=== PATIENT | female | born 1995 | race Two or more races ===

== ENCOUNTER 2022-01-18 13:16 | Emergency (ER) | payer OTHER ==
[~2022-01-18] VITALS: Ht 154.9 cm; Wt 68.0 kg
[2022-01-18 13:24] VITALS: BP 124/79
--- NOTE | 2022-01-18 13:24 | NUR ---
PT HAD COVID 3 MOS AGO, ON & OFF SOB
[2022-01-18] MEDS ORDERED: ALBU18HF2 INH (15:17)
[2022-01-18] MEDS ORDERED: PRED20TA PO (15:17)
--- NOTE | 2022-01-18 15:48 | NUR ---
Patient discharged to home in stable condition. Written and verbal after care instructions given. Patient verbalizes understanding of instruction.
== END 2022-01-18 15:48 | disposition home or self-care (01) ==
LOC: ER 13:16
DX: J98.01 Acute bronchospasm (principal); R05.3 Chronic cough; U09.9 Post COVID-19 condition, unspecified; R06.02 Shortness of breath
CPT/HCPCS: 71045-TC